=== PATIENT | male | born 2000 | race Caucasian/White ===

== ENCOUNTER 2024-06-27 19:13 | Emergency (ER) | payer OTHER ==
[2024-06-27] MEDS: Diphtheria,Pertussis(Acell),Tetanus Vaccine 0.5 ML Syringe IM ONE (19:52)
== END 2024-06-27 20:00 | disposition home or self-care (01) ==
LOC: FB.ED 19:13
DX: S80.811A Abrasion, right lower leg, initial encounter (principal); W22.8XXA Striking against or struck by other objects, initial encounter; Z23 Encounter for immunization
CPT/HCPCS: 90471; 90715; 99283-25